=== PATIENT | female | born 1975 | race Caucasian/White ===

== ENCOUNTER 2017-02-21 19:33 | Emergency (ER) | END 2017-02-21 23:22 | disposition home or self-care (01) | DX: I16.1 Hypertensive emergency (principal); G44.209 Tension-type headache, unspecified, not intractable; I10 Essential (primary) hypertension; E66.9 Obesity, unspecified; Z68.37 Body mass index [BMI] 37.0-37.9, adult; Z91.14 Patient's other noncompliance with medication regimen | CPT/HCPCS: 36415; 70450; 80053; 81001; 83690; 84484; 85025; 93005; 96374; J0360; J7040; Z7502; Z7610 ==

== ENCOUNTER 2018-03-18 14:46 | Emergency (ER) | END 2018-03-18 16:59 | disposition home or self-care (01) ==

== ENCOUNTER 2019-03-28 20:17 | Observation (INO) | payer OTHER ==
[~2019-03-28] VITALS: Ht 160 cm; Wt 95.6 kg
[~2019-03-28 20:17] MED LIST: AMLO-147 PO; ASPI-1163 PO; ASPI-831 PO; ASPI-903 PO; ATOR20TA38 PO; ATOR20TA65 PO; ATOR40TA68 PO; BENA10TA6 PO; CHOL100062 PO; CHOL200073 PO; HYDR25TA6 PO; HYG50 PO; LISI-471 PO; LISI10TA2 PO; METF850T13 PO
[2019-03-29] VITALS (8 sets, daily range): BP systolic 130–151; BP diastolic 71–84; PULSE 64–89; RESP 17–19; Ht 160 cm; Wt 95.6 kg
[2019-03-29] MEDS ORDERED: IOHEXOL 300MG/ML 150 ML BTL ONE (00:37)
[2019-03-29] MEDS ORDERED: SOD CHLORIDE 0.9% 100 ML ONE (00:37)
[2019-03-29] MEDS ORDERED: ONDANSETRON 4 MG INJ IV PRN (01:30)
[2019-03-29] MEDS ORDERED: ACETAMINOPHEN 325 MG TAB PO PRN (01:30)
[2019-03-29] MEDS: ASPIRIN 81 MG TAB PO SCH (08:24)
[2019-03-29] MEDS: AMLODIPINE 10 MG TAB PO SCH (08:24)
[2019-03-29] MEDS: HYDROCHLOROTHIAZIDE 25 MG TAB PO SCH (08:24)
[2019-03-29] MEDS ORDERED: POTASSIUM CHLORIDE (SR) 20 MEQ TAB PO STA (10:30)
[2019-03-29] MEDS: LISINOPRIL 20 MG TAB PO SCH (10:41)
[2019-03-29] MEDS: ACETAMINOPHEN 325 MG TAB PO PRN (16:54)
[2019-03-29] MEDS ORDERED: ATORVASTATIN 20 MG TAB PO SCH (21:00)
[2019-03-30 04:00] VITALS: BP 112/56; PULSE 68; RESP 18
[2019-03-30 07:23] VITALS: BP 114/64; PULSE 76; RESP 20
[2019-03-30] MEDS: ASPIRIN 81 MG TAB PO SCH (08:42)
[2019-03-30] MEDS: HYDROCHLOROTHIAZIDE 25 MG TAB PO SCH (08:42)
[2019-03-30] MEDS: AMLODIPINE 10 MG TAB PO SCH (08:43)
[2019-03-30] MEDS: LISINOPRIL 20 MG TAB PO SCH (08:43)
[2019-03-30] MEDS: ACETAMINOPHEN 325 MG TAB PO PRN ×2 (10:05→16:54)
[2019-03-30 11:03] VITALS: BP 131/71; PULSE 76; RESP 20
[2019-03-30 16:07] VITALS: BP 133/72; PULSE 76; RESP 20
== END 2019-03-30 19:32 | disposition home or self-care (01) ==
LOC: E/R 20:17 → 6WM 03-29 01:20
PROVIDERS: ADMIT Internal Medicine; ATTEND Internal Medicine
DX: I63.9 Cerebral infarction, unspecified (principal); I10 Essential (primary) hypertension; E11.9 Type 2 diabetes mellitus without complications; Z79.82 Long term (current) use of aspirin; Z79.84 Long term (current) use of oral hypoglycemic drugs
CPT/HCPCS: 70450; 70496; 70498; 70551; 71045; 80053; 80061; 80307; 81025; 81240; 82962; 83036; 84484; 85025; 85300; 85302; 85305; 85613; 85651; 86038; 86146; 86147; 86592; 86703; 92610; 93005; 93306; 93880; 97110; 97116; 97161; Q9967; Z7500; Z7502; Z7610; G0378

== ENCOUNTER 2019-05-09 10:07 | Emergency (ER) | payer OTHER ==
[~2019-05-09] VITALS: Ht 157.5 cm; Wt 95.4 kg
[~2019-05-09 10:07] MED LIST changes: -ASPI-903 PO; -ATOR20TA38 PO; -LISI10TA2 PO; -METF850T13 PO
[2019-05-09 10:11] VITALS: Ht 157.5 cm; Wt 95.4 kg
[2019-05-09 11:46] VITALS: BP 120/78; PULSE 88; RESP 18
[2019-05-09] MEDS ORDERED: ACETAMINOPHEN 325 MG TAB PO ONE (12:00)
== END 2019-05-09 12:22 | disposition home or self-care (01) ==
LOC: E/R 10:07
DX: G45.9 Transient cerebral ischemic attack, unspecified (principal); R40.2142 Coma scale, eyes open, spontaneous, at arrival to emergency department; R40.2362 Coma scale, best motor response, obeys commands, at arrival to emergency department; R40.2252 Coma scale, best verbal response, oriented, at arrival to emergency department; I10 Essential (primary) hypertension; E66.9 Obesity, unspecified; Z79.82 Long term (current) use of aspirin
CPT/HCPCS: 36415; 70450; 71045; 80048; 80061; 80307; 81003; 81025; 82962; 83036; 84484; 85025; 85610; 85730; 93005; Z7502; Z7610